=== PATIENT | female | born 1960 | race African-American/Black ===

== ENCOUNTER → 2016-12-06 | Outpatient (CLI) | payer MEDICAID ==
[2016-12-06 09:27] LABS: ABSOLUTE EOSINOPHILS # (AUTO) 0.1 10^3/uL (0.0-0.6); ABSOLUTE LYMPHOCYTES (AUTO) 2.1 10^3/uL (0.5-4.7); ABSOLUTE MONOCYTES (AUTO) 0.6 10^3/uL (0.1-1.4); ABSOLUTE NEUT (AUTO) 4.7 10^3/uL (1.7-8.2); BASOPHILS % (AUTO) 0.6 % (0-2); EOSINOPHILS % (AUTO) 0.7 % (0-6); HEMATOCRIT 36.4 % (36.0-47.0); HEMOGLOBIN 11.6 g/dL (12.0-15.5); HGB HCT DIFFERENCE -1.6; LYMPHOCYTES % (AUTO) 27.8 % (13-45); MEAN CORPUSCULAR HEMOGLOBIN 27.9 pg (27.0-33.4); MEAN CORPUSCULAR VOLUME 87 fl (80-97); MONOCYTES % (AUTO) 8.6 % (3-13); RED BLOOD COUNT 4.17 10^6/uL (3.72-5.28); SEGMENTED NEUTROPHILS % (AUTO) 62.3 % (42-78); WHITE BLOOD COUNT 7.5 10^3/uL (4.0-10.5)
[2016-12-06 09:50] LABS: ALANINE AMINOTRANSFERASE 43 U/L (9-52); ALBUMIN 4.4 g/dL (3.5-5.0); ALKALINE PHOSPHATASE 110 U/L (38-126); ANION GAP 10 (5-19); ASPARTATE AMINO TRANSFERASE 30 U/L (14-36); BILIRUBIN,DIRECT 0.2 mg/dL (0.0-0.4); BILIRUBIN,TOTAL 0.3 mg/dL (0.2-1.3); BLOOD UREA NITROGEN 10 mg/dL (7-20); CALCIUM 9.6 mg/dL (8.4-10.2); CARBON DIOXIDE 26 mmol/L (22-30); CHLORIDE 101 mmol/L (98-107); CREATININE RESULT 0.78 mg/dL (0.52-1.25); Direct HDL 67 mg/dL (>40); GLUCOSE 97 mg/dL (75-110); POTASSIUM 4.4 mmol/L (3.6-5.0); SODIUM 137.3 mmol/L (137-145); TOTAL PROTEIN 7.8 g/dL (6.3-8.2); TRIGLYCERIDES 74 mg/dL (<150)
[2016-12-06 10:05] LABS: DIRECT LDL 115 mg/dL (<100)
== END ==
LOC: OD 08:54
PROVIDERS: ATTEND Physician Assistant
DX: Z51.81 Encounter for therapeutic drug level monitoring (principal); F20.0 Paranoid schizophrenia; Z79.899 Other long term (current) drug therapy
CPT/HCPCS: 36415; 80053; 80061; 80156; 84146; 85025

== ENCOUNTER → 2017-01-03 | Outpatient (CLI) | payer MEDICAID ==
--- NOTE | 2017-01-03 09:11 | WOMENS IMAGING REPORT ---
EXAM DESCRIPTION: BILAT SCREENING MAMMO W/CAD COMPLETED DATE/TIME: 01/03/2017 8:59 am REASON FOR STUDY: ROUTINE SCREENING; Z12.31 Z12.31 ENCNTR SCREEN MAMMOGRAM FOR MALIGNANT NEOPLASM O F BRUNO COMPARISON: 04/21/2015 and 01/17/2014. TECHNIQUE: Standard craniocaudal and mediolateral oblique views of each breast recorded using digita l acquisition. LIMITATIONS: None. FINDINGS: Findings present which are benign by mammographic criteria. No suspicious masses, calcifi cations or architectural distortion. Pertinent benign findings: Stable calcifications. Biopsy changes in the right breast. Read with the assistance of CAD. .[facility] - R2 Cenova Version 1.3 .[facility] - R2 Cenova Version 1.3 .[facility] - R2 Cenova Version 2.4 .[facility] - R2 Cenova Version 2.4 .[facility] - R2 Advertising Agent Version 9.2 Benign mammographic findings may include one or more of the following: Smooth masses, popcorn/rim/co arse calcifications, asymmetries, post-procedure changes, and lesions with long-standing stability. IMPRESSION: BENIGN MAMMOGRAPHIC FINDINGS. BIRADS 2 BREAST DENSITY: b. There are scattered areas of fibroglandular density. BIRAD: 2 BENIGN FINDING(S) RECOMMENDATION: ROUTINE SCREENING COMMENT: The patient has been notified of the results by letter per SA requirements. Additional no tification policies are in place for contacting patient with suspicious or incomplete findings. Quality ID #[id number]: The [employer] recommends an annual screening mammogram for women aged 40 years or over. This facility utilizes a reminder system to ensure that all patients receive reminder letters, and/or direct phone calls for appointments. This includes reminders for routine scr eening mammograms, diagnostic mammograms, or other Breast Imaging Interventions when appropriate. Th is patient will be placed in the appropriate reminder system. The [employer] (ACR) has developed recommendations for screening MRI of the breast s in certain patient populations, to be used in conjunction with mammography. Breast MRI surveillanc e may be appropriate for women with more than 20% lifetime risk of developing breast cancer as deter mined by genetic testing, significant family history of the disease, or history of mantle radiation f or Hodgkins Disease. ACR Practice Guidelines 2008. TECHNICAL DOCUMENTATION: FINDING NUMBER: (1) ASSESSMENT: (1) JOB ID: [id number] [employer]- All Rights Reserved
== END ==
LOC: WI 08:25
PROVIDERS: ATTEND Internal Medicine
DX: Z12.31 Encounter for screening mammogram for malignant neoplasm of breast (principal)
CPT/HCPCS: 77067; G0202

== ENCOUNTER 2018-07-08 14:26 | Emergency (ER) | payer MEDICAID ==
[2018-07-08 14:58] LABS: ABSOLUTE LYMPHOCYTES (AUTO) 1.5 10^3/uL (0.5-4.7); ABSOLUTE MONOCYTES (AUTO) 0.6 10^3/uL (0.1-1.4); ABSOLUTE NEUT (AUTO) 7.6 10^3/uL (1.7-8.2); BASOPHILS % (AUTO) 0.5 % (0-2); EOSINOPHILS % (AUTO) 0.1 % (0-6); HEMOGLOBIN 12.7 g/dL (12.0-15.5); LYMPHOCYTES % (AUTO) 15.7 % (13-45); MEAN CORPUSCULAR HEMOGLOBIN 28.2 pg (27.0-33.4); MEAN CORPUSCULAR HGB CONC 33.3 g/dL (32.0-36.0); MEAN CORPUSCULAR VOLUME 85 fl (80-97); MONOCYTES % (AUTO) 6.4 % (3-13); PLATELET COUNT 190 10^3/uL (150-450); RED BLOOD COUNT 4.49 10^6/uL (3.72-5.28); RED CELL DISTRIBUTION WIDTH 14.2 % (11.5-14.0); SEGMENTED NEUTROPHILS % (AUTO) 77.3 % (42-78); TOTAL CELLS COUNTED % (AUTO) 100 %; WHITE BLOOD COUNT 9.9 10^3/uL (4.0-10.5)
[2018-07-08 15:12] LABS: ALANINE AMINOTRANSFERASE 25 U/L (9-52); ALBUMIN 4.5 g/dL (3.5-5.0); ALKALINE PHOSPHATASE 102 U/L (38-126); ANION GAP 9 (5-19); ASPARTATE AMINO TRANSFERASE 22 U/L (14-36); BILIRUBIN,DIRECT 0.2 mg/dL (0.0-0.4); BILIRUBIN,TOTAL 0.3 mg/dL (0.2-1.3); BLOOD UREA NITROGEN 12 mg/dL (7-20); CALCIUM 9.5 mg/dL (8.4-10.2); CARBON DIOXIDE 26 mmol/L (22-30); CHLORIDE 106 mmol/L (98-107); GLUCOSE 95 mg/dL (75-110); POTASSIUM 3.7 mmol/L (3.6-5.0); SODIUM 141.4 mmol/L (137-145); TOTAL PROTEIN 7.3 g/dL (6.3-8.2)
[2018-07-08 15:13] LABS: ACETAMINOPHEN < 10 ug/mL (10-30); ALCOHOL < 10 mg/dL (NONE DETECTED); SALICYLATE < 1.0 mg/dL (2.0-20.0)
--- NOTE | 2018-07-08 16:38 | PSYCHOLOGICAL NOTE ---
Psych Note - Psych Note Date seen by psych provider: 07/08/18 Time seen by psych provider: 15:00 Psych Note: Reason for Consult: IVC Patient discloses manufacturing business analyst let her on the bus without a take it because the terminal computers were down. She reports next time she will make sure that she buys a take it. She confirms she lives here locally however her "neighbors cleared out without me." She is unable to articulate where she was going or why. When asked if there was any friends or family in the area that she reports "I do not know who could put up with me" and then appears to be going through a possible list of people, where they live, what they do and if they have the time to assist her. Patient has a history of living in assisted living, and take programs in a half-way situations. She is unable to articulate who her current mental health provider is however does state that Dr. Cruz is her doctor. Conversational speech is pressured. Patient does not make eye contact is noted to be rocking and then starts to cover the side of her head with her hand to completely block her face from sight from clinician. Patient is noted to be easily startled by her surroundings. Patient is unable to carry on organized and linear conversation; thought processes are tangential. Patient contacted [facility] to verify diagnosis. Patient has documented diagnosis of schizophrenia going back to 2000. Patient's last outpatient mental health provider was noted to be [facility]. Medication recommendations per [facility]'s contracted psychiatrist Dr. Kameron LANCE are as follows Zyprexa 10 mg IM once Zyprexa 5 mg IM twice daily Cogentin 1 mg daily Thorazine 50 mg IM every 8 hours as needed Schizophrenia per history provided by [facility] Impression\\plan: Patient is recommended to continue under IVC. Currently patient is unable to engage effectively in problem solving or demonstrate insight, judgment and impulse control. Patient does have a mental health history of schizophrenia with a stay at [facility] living. Patient's speech is currently pressured with tangential thought processes. It is unclear if the patient is highly agitated or if she is responding to internal stimuli as she is attempting to cover the side of her face so she cannot see clinician or outside of the room, is rocking back and forth, and is easily startled. Medication recommendations have been provided; patient will be reevaluated. Dr. Rodríguez was consulted and the care management of this patient; attending physicians in agreement with recommendations and disposition.
[2018-07-08] MEDS ORDERED: CHLORPROMAZINE HCL INJ 25 MG/1 ML AMPULE IM PRN (17:16)
[2018-07-08] MEDS: OLANZAPINE INJ/PF 10 MG SDV IM SCH (17:47)
--- NOTE | 2018-07-08 18:58 | ER Document Report ---
ED General - General Chief Complaint: Psych Problem Stated Complaint: PSYCH EVAL Time Seen by Provider: 07/08/18 15:20 Primary Care Provider: DAYO CRAWFORD MD [Primary Care Provider] - Follow up as needed TRAVEL OUTSIDE OF THE [place] IN LAST 30 DAYS: No - HPI Notes: Patient brought in for evaluation of psychiatric complaint. She really cannot offer me any meaningful history. Evidently the patient was found trying to get on a bus without a take it. She became more agitated and combative so was brought here. The patient states she does not want to be here. When I asked her about what sort of help she is received in the past, she mentions multiple day programs. I asked her if there is anyone that can help her as an outpatient. She mentions multiple neighbors but does not have a phone number. According to the police they have tried to find a family member or someone to help with her care for some time. There are some concerns over her welfare and ability to care for self. The patient herself states she is not suicidal nor homicidal. - Related Data Allergies/Adverse Reactions: No Known Allergies Allergy (Unverified 07/17/12 11:39) Past Medical History - General Information source: Patient - Unobtainable due to current mental status patient - Social History Smoking Status: Current Every Day Smoker Family History: Other - Patient unable to offer any meaningful family history Patient has suicidal ideation: No Patient has homicidal ideation: No Renal/ Medical History: Denies: Hx Peritoneal Dialysis Psychiatric Medical History: Reports: Hx Schizophrenia Review of Systems - Review of Systems -: Yes ROS unobtainable due to patient's medical condition - Patient evidently has a history of schizophrenia, unreliable review of syst Physical Exam - Vital signs Vitals: Temp Pulse BP Pulse Ox 97.7 F 83 136/78 H 98 07/08/18 14:55 07/08/18 14:55 07/08/18 14:55 07/08/18 14:55 Interpretation: Normal - Notes Notes: Patient is seen and examined by myself. She is agitated, rocking back and forth. She makes markedly diminished eye contact. Her speech is pressured, she exhibits flight of ideas. Head is normocephalic atraumatic. Pupils equal round reactive to light. Neck is supple without thyromegaly or adenopathy. Heart is regular rate and rhythm, lungs are clear to auscultation bilaterally. Abdomen is soft, nontender, normoactive bowel sounds. Extremities without cyanosis, clubbing, edema. Skin is warm and dry. No focal neurological deficits, no gross facial asymmetry. Patient is intermittently cooperative and slightly agitated. Course - Re-evaluation Re-evalutation: 07/08/18 18:58 Patient presents to the emergency department for evaluation. IVC papers are filled out. The patient remained agitated occasions were ordered as per psychiatric recommendation. Patient will be held in the emergency department pending psychiatric hospitalization. 07/08/18 18:59 Please note that urine is still pending at this time. - Vital Signs Vital signs: Temp Pulse Resp BP Pulse Ox 97.7 F 83 136/78 H 98 07/08/18 14:55 07/08/18 14:55 07/08/18 14:55 07/08/18 14:55 - Laboratory Result Diagrams: 07/08/18 14:45 07/08/18 14:45 Laboratory results interpreted by me: 07/08/18 07/08/18 07/09/18 14:45 14:45 00:20 RDW 14.2 H Urine Ketones TRACE H Salicylates < 1.0 L Acetaminophen < 10 L - EKG Interpretation by Me Additional EKG results interpreted by me: 07/08/18 18:57 EKG reveals bigeminy with a rate of 80 bpm. Normal axis and intervals. No acute ST-T wave changes concerning for ischemia or infarction. Discharge - Discharge Clinical Impression: Psychosis, Schizophrenia Condition: Fair Disposition: PSYCH HOSP/UNIT Referrals: DAYO CRAWFORD MD [Primary Care Provider] - Follow up as needed
--- NOTE | 2018-07-08 20:12 | EKG REPORT ---
SEVERITY:- ABNORMAL ECG - SINUS RHYTHM VENTRICULAR BIGEMINY PROBABLE LEFT ATRIAL ABNORMALITY NONSPECIFIC T ABNORMALITIES, INFERIOR LEADS : Confirmed by: Christie Gomez 08-Jul-2018 20:11:25
[2018-07-09 01:03] LABS: APPEARANCE,URINE SLIGHTLY-CLOUDY; BILIRUBIN,URINE NEGATIVE (NEGATIVE); COLOR,URINE YELLOW; GLUCOSE, URINE NEGATIVE (NEGATIVE); KETONES,URINE TRACE mg/dL (NEGATIVE); LEUKOCYTE ESTERASE,URINE NEGATIVE (NEGATIVE); NITRITE,URINE NEGATIVE (NEGATIVE); PROTEIN,URINE NEGATIVE (NEGATIVE); URINE SPECIFIC GRAVITY 1.015; UROBILINOGEN,URINE NEGATIVE mg/dL (<2.0)
[2018-07-09 01:18] LABS: URINE AMPHETAMINES SCREEN NEGATIVE; URINE BARBITURATES SCREEN NEGATIVE; URINE BENZODIAZEPINES SCREEN NEGATIVE; URINE COCAINE SCREEN NEGATIVE; URINE MARIJUANA (THC) SCREEN NEGATIVE; URINE METHADONE SCREEN NEGATIVE; URINE PHENCYCLIDINE SCREEN NEGATIVE
--- NOTE | 2018-07-09 09:53 | ER Document Report ---
Doctor's Note Notes: 07/09/18 09:51 Patient seen and examined, vital signs reviewed. Patient continues to ramble, and talks in circles, makes poor eye contact, when discussing any issues with the patient. She seems to obsess over things, and repeats herself and counts down and then counts back up. She is been naming several people that may be able to help her, but then states she does not want to bother them. She seems to still be having some issues from a psychiatric standpoint, and I feel that there is likely a component of developmental delay as well, this is discussed with the behavioral health team, which they agree, we will continue to monitor and treat to see if the patient improves from a mental health standpoint, to control her symptoms. Patient continues to be medically clear.
[2018-07-09] MEDS: OLANZAPINE INJ/PF 10 MG SDV IM SCH ×2 (10:51→18:45)
[2018-07-09] MEDS: BENZTROPINE MESYLATE INJ 2 MG/2 ML AMPULE IM SCH (10:51)
--- NOTE | 2018-07-10 10:06 | ER Document Report ---
Doctor's Note Notes: 07/10/18 10:04 Patient seen and evaluated. She is standing at the sink washing half of her hair during my exam. Patient believes we have met before although this is the first time I have evaluated her on this visit. Patient is speaking pressured and seems anxious. She states she does not like hospitals because last time she was here was for a family reason or for mammogram, she was not sure but continue to speak in circles around why she was here last. Patient does state that the medication she was receiving IM last night helped her. She does express a desire to feel better. She is stating that she would prefer to take oral medications now if possible. Patient states that she was hoping to go home tomorrow if possible. She is waiting for psych evaluation still today for disposition planning. She is continuing to be medically cleared and stable.
[2018-07-10] MEDS: OLANZAPINE INJ/PF 10 MG SDV IM SCH (10:56)
[2018-07-10] MEDS: BENZTROPINE MESYLATE INJ 2 MG/2 ML AMPULE IM SCH (10:56)
[2018-07-10 13:39] VITALS: BP 131/71
--- NOTE | 2018-07-10 13:49 | PSYCHOLOGICAL NOTE ---
Psych Note - Psych Note Date seen by psych provider: 07/09/18 Time seen by psych provider: 07:15 Psych Note: Reason for Consult: IVC Check in conducted with patient Patient continues to have a difficult time with linear and organized conversati on. Patient continues with pressured speech and tangential thought processes. Presentation is still very childlike, it is unclear if this is baseline. [facility] reports only mental health diagnosis not a intellectual disability. Patient is observed standing and psychomotor agitation (swinging her legs and rocking). attention and concentration are grossly poor. Patient never makes eye contact but in brief moments lasting 1 -2 seconds. Medication recommendations per [facility]'s contracted psychiatrist Dr. Kameron LANCE are as follows Zyprexa 10 mg IM once Zyprexa 5 mg IM twice daily Cogentin 1 mg daily Thorazine 50 mg IM every 8 hours as needed Schizophrenia per history provided by [facility] Impression\plan: Patient is recommended to continue under IVC. Currently patient is unable to engage effectively in problem solving or demonstrate insight, judgment and impulse control. Patient does have a mental health history of schizophrenia with a stay at [facility] living. Patient's speech is currently pressured with tangential thought processes. Patient continues to hide her face so she cannot see clinician or outside of the room, is rocking back and forth, swinging her legs, and is easily startled. Medication recommendations have been provided; patient will be reevaluated. Dr. Rodríguez was consulted and the care management of this patient; attending physicians in agreement with recommendations and disposition.
--- NOTE | 2018-07-10 13:52 | PSYCHOLOGICAL NOTE ---
Psych Note - Psych Note Date seen by psych provider: 07/10/18 Time seen by psych provider: 09:15 Psych Note: Reason for Consult: IVC Check in conducted with patient Patient is observed caring on a conversation in her room (no one is in the room with her). Patient does shower but continues to have difficulties conducting organized and linear conversations. Patient was accepted to [facility]; transports has been requested. Medication recommendations per [facility]'s contracted psychiatrist Dr. Kameron LANCE are as follows Zyprexa 10 mg IM once Zyprexa 5 mg IM twice daily Cogentin 1 mg daily Thorazine 50 mg IM every 8 hours as needed Schizophrenia per history provided by [facility] Impression\plan: Patient is recommended to continue under IVC. Currently patient is unable to engage effectively in problem solving or demonstrate insight, judgment and impulse control. Patient does have a mental health history of schizophrenia with a stay at [facility]. Patient's speech is currently pressured with tangential thought processes. Patient continues to hide her face so she cannot see clinician or outside of the room, is rocking back and forth, swinging her legs, and is easily startled. Medication recommendations have been provided. Patient was accepted to [facility]; transports has been requested. Dr. Rodríguez was consulted and the care management of this patient; attending physicians in agreement with recommendations and disposition.
== END 2018-07-10 17:20 ==
LOC: ER 14:26
DX: F20.9 Schizophrenia, unspecified (principal); F29 Unspecified psychosis not due to a substance or known physiological condition; R45.1 Restlessness and agitation; F17.200 Nicotine dependence, unspecified, uncomplicated
CPT/HCPCS: 93005; 99285; 96372; 36415; 80307 ×4; 85025; 80053; 81001; 93010; J0515 ×2

== ENCOUNTER 2019-10-21 13:39 | Emergency (ER) | payer MEDICAID, OTHER ==
[2019-10-21 14:26] LABS: ABSOLUTE LYMPHOCYTES (AUTO) 2.2 10^3/uL (0.5-4.7); ABSOLUTE MONOCYTES (AUTO) 0.6 10^3/uL (0.1-1.4); ABSOLUTE NEUT (AUTO) 2.8 10^3/uL (1.7-8.2); BASOPHILS % (AUTO) 0.3 % (0-2); EOSINOPHILS % (AUTO) 0.7 % (0-6); HEMATOCRIT 34.7 % (36.0-47.0); HEMOGLOBIN 11.9 g/dL (12.0-15.5); LYMPHOCYTES % (AUTO) 38.5 % (13-45); MEAN CORPUSCULAR HEMOGLOBIN 29.6 pg (27.0-33.4); MEAN CORPUSCULAR HGB CONC 34.3 g/dL (32.0-36.0); MEAN CORPUSCULAR VOLUME 86 fl (80-97); MONOCYTES % (AUTO) 10.4 % (3-13); PLATELET COUNT 119 10^3/uL (150-450); RED BLOOD COUNT 4.02 10^6/uL (3.72-5.28); RED CELL DISTRIBUTION WIDTH 15.1 % (11.5-14.0); SEGMENTED NEUTROPHILS % (AUTO) 50.1 % (42-78); TOTAL CELLS COUNTED % (AUTO) 100 %; WHITE BLOOD COUNT 5.6 10^3/uL (4.0-10.5)
--- NOTE | 2019-10-21 14:37 | ER Document Report ---
ED General - General Chief Complaint: Psych Problem Stated Complaint: ALTERED MENTAL STATUS Time Seen by Provider: 10/21/19 14:10 Primary Care Provider: DAYO CRAWFORD MD [Primary Care Provider] - Follow up as needed Notes: 59-year-old female who was brought to [facility] by JOAQUIM for abnormal behavior, when seen at [facility] they were concerned because she was not making sense so they have a bed available for her however they sent her to this emergency department for both medical and psychiatric evaluation. Patient currently states that she just wanted help, does not want any more Pap smears, does not want any other examinations. Repeats again that she is sick of having Pap smears. Denies any suicidal or homicidal ideation, denies any physical symptoms. Refuses to answer anymore questions. Refuses to allow physical examination beyond observation. Did allow blood work. States over and over again that she just wants to leave. Cannot tell me why JOAQUIM brought her to [facility] in the first place. Cannot tell me what help she was hoping to get from [facility]. TRAVEL OUTSIDE OF THE [place] IN LAST 30 DAYS: No - Related Data Allergies/Adverse Reactions: No Known Allergies Allergy (Unverified 07/17/12 11:39) Past Medical History - General Information source: Patient - Social History Smoking Status: Current Every Day Smoker Chew tobacco use (# tins/day): No Family History: Other - Patient unable to offer any meaningful family history Patient has homicidal ideation: No Renal/ Medical History: Denies: Hx Peritoneal Dialysis Psychiatric Medical History: Reports: Hx Schizophrenia Review of Systems - Review of Systems -: Yes ROS unobtainable due to patient's medical condition - Patient refuses to answer questions. Physical Exam - Vital signs Vitals: Temp 97.8 F 10/21/19 13:40 - Notes Notes: GENERAL: Alert, pacing, agitated, repeating that she wants to leave. HEAD: Normocephalic, atraumatic EYES: Pupils equal, round and reactive to light, extraocular movements intact. ENT: Oral mucosa moist, tongue midline. NECK: Full range of motion, supple, trachea midline. LUNGS: no respiratory distress. Will not allow me to listen to her lungs HEART: Will not allow me to examine her heart ABDOMEN: nondistended on visual expection, will not allow me to do physical inspection. EXTREMITIES: Moves all 4 extremities spontaneously. No cyanosis. NEUROLOGICAL: Alert, pacing, some flight of ideas but no slurred speech, normal speech, no facial droop. PSYCH: Agitated, repeating herself, rarely answers a question directly, shows some signs of paranoia. Course - Re-evaluation Re-evalutation: 10/21/19 15:26 [facility] requested COVID swab if she is discharged back to them. Currently patient is not allowing me to listen to her heart or lungs. Suspect patient will not allow us to do a COVID swab at this time. I have no suspicion for symptomatic coronavirus at this time as she has no cough, no fevers and no shortness of breath. 10/21/19 16:50 CBC shows mild anemia hemoglobin 11.9, platelets low 119 otherwise unremarkable, CMP unremarkable, salicylate, acetaminophen and alcohol all undetectable. Carla heredia is medically cleared, but she is in need of acute psychiatric stabilization as she appears to be having an acute exacerbation of her paranoid schizophrenia. Patient is placed on involuntary commitment paperwork. 10/21/19 20:24 [facility] re[facility]. - Vital Signs Vital signs: Temp Pulse Resp BP Pulse Ox 97.8 F 10/21/19 13:40 - Laboratory Result Diagrams: 10/21/19 13:50 10/21/19 13:50 Laboratory results interpreted by me: 10/21/19 10/21/19 10/21/19 13:50 13:50 19:25 Hgb 11.9 L Hct 34.7 L RDW 15.1 H Plt Count 119 L Urine Ketones TRACE H Urine Urobilinogen 4.0 H Ur Leukocyte Esterase TRACE H Salicylates < 1.0 L Acetaminophen < 10 L Discharge - Discharge Clinical Impression: Paranoid schizophrenia Condition: Good Disposition: PSYCH HOSP/UNIT Referrals: DAYO CRAWFORD MD [Primary Care Provider] - Follow up as needed
[2019-10-21 14:43] LABS: ALBUMIN 4.3 g/dL (3.5-5.0); ALKALINE PHOSPHATASE 81 U/L (38-126); ANION GAP 9 (5-19); ASPARTATE AMINO TRANSFERASE 22 U/L (14-36); BILIRUBIN,TOTAL 0.3 mg/dL (0.2-1.3); BLOOD UREA NITROGEN 10 mg/dL (7-20); CALCIUM 9.4 mg/dL (8.4-10.2); CARBON DIOXIDE 24 mmol/L (22-30); CHLORIDE 107 mmol/L (98-107); GLUCOSE 109 mg/dL (75-110); POTASSIUM 4.2 mmol/L (3.6-5.0); TOTAL PROTEIN 7.7 g/dL (6.3-8.2)
[2019-10-21 14:46] LABS: ACETAMINOPHEN < 10 ug/mL (10-30); ALCOHOL < 10 mg/dL (NONE DETECTED); SALICYLATE < 1.0 mg/dL (2.0-20.0)
[2019-10-21] MEDS ORDERED: NICOTINE 14 MG/24 HR PATCH.TD24 TD ONE (19:25)
[2019-10-21 19:56] LABS: APPEARANCE,URINE CLEAR; BILIRUBIN,URINE NEGATIVE (NEGATIVE); COLOR,URINE YELLOW; GLUCOSE, URINE NEGATIVE (NEGATIVE); KETONES,URINE TRACE mg/dL (NEGATIVE); LEUKOCYTE ESTERASE,URINE TRACE (NEGATIVE); NITRITE,URINE NEGATIVE (NEGATIVE); PROTEIN,URINE NEGATIVE (NEGATIVE); URINE SPECIFIC GRAVITY 1.019
[2019-10-21] MEDS: CHLORPROMAZINE HCL INJ 25 MG/1 ML AMPULE IM SCH (20:15)
[2019-10-21] MEDS: BENZTROPINE MESYLATE INJ 2 MG/2 ML AMPULE IM SCH (20:15)
[2019-10-21 20:20] LABS: URINE AMPHETAMINES SCREEN NEGATIVE; URINE BARBITURATES SCREEN NEGATIVE; URINE BENZODIAZEPINES SCREEN NEGATIVE; URINE COCAINE SCREEN NEGATIVE; URINE MARIJUANA (THC) SCREEN NEGATIVE; URINE METHADONE SCREEN NEGATIVE; URINE PHENCYCLIDINE SCREEN NEGATIVE
[2019-10-22] MEDS: CHLORPROMAZINE HCL INJ 25 MG/1 ML AMPULE IM SCH ×4 (01:16→14:14)
[2019-10-22] MEDS: BENZTROPINE MESYLATE INJ 2 MG/2 ML AMPULE IM SCH ×2 (09:35→17:43)
--- NOTE | 2019-10-22 10:27 | PSYCHOLOGICAL NOTE ---
Psych Note - Psych Note Date seen by psych provider: 10/21/19 Time seen by psych provider: 16:37 - [id number] Psych Note: Presenting Problem: Patient is a 59 year old female who presented to the [facility] ED this afternoon via [facility] from [place] after they took her to [place] initially but due to recent travel (has packed bags with airline tickets dated 10/20/2019 per attending nurse) so need for medical clearance (COVID screening) and AMS. Observed patient in her room, going back and forth between standing and sitting on bed. She came out into the hallway and said she was going home. It took a couple medical staff to redirect her. She has been refusing medical procedures and per documentation kept saying "I don't want anymore PAP smear testing." Chart review revealed patient has been coming to the [facility] ED since 2010. She was seen by [facility] 07/08/2018 for similar etiology (AMS, guarded, paranoia, psychosis), held for 3 days, Zyprexa utilized without effectiveness and went inpatient to [place]. She has a documented history of Paranoid Schizophrenia per old ED visit that Sharmin Goodrich ([facility] provider) sent her for (likely labs). She has previously lived at the [facility] in [place] per Jun 2018 ED visit. Patient was alert and oriented to self, person and place. She presented guarded as evidenced by not allowing medical procedures. No SI/HI comments or gestures were made. Patient kept saying she didn't want any more PAP smears so seemed to be having some sort of psychosis or referencing a previous time. Thought processes were disorganized. Intellectual abilities are estimated to be average. Insight, judgment and impulse control were poor as evidenced by AMS with history of Paranoid Schizophrenia. Collateral: At 1518 obtained collateral from [facility] regarding history of multiple calls related to AMS, numerous IVCs and hospitalizations. At 1707 spoke to Zully SMALLS from [facility] who noted when she would ask patient questions patient would answer with something they didn't talk about and further noted [facility] told her they reported h er missing a year ago. Diagnosis: AMS Psychosis (Delusions, Paranoia, Guarded) History of Paranoid Schizophrenia and noncompliance Medication recommendations made by the psychiatric medication provider Dr. Kameron LANCE., includes: Add Thorazine 50MG IM every 6 hours scheduled for psychosis Add Cogentin 1MG IM twice a day to curb tremor side effects often associated with antipsychotic medications Impression/Plan: Recommendation for full IVC. Patient wanted to leave, walked out of her ED room into the hallway and had to be redirected back to her room by a coupe medical staff, has guarded and paranoid presentation to the extent she would not allow medical screening and procedures and kept saying she didn't want anymore PAP smears, she has a documented history of Paranoid Schizophrenia with noncompliance and presented AMS. Consulted with Dr. Rodríguez regarding the management and care of patient. ED Physician in agreement with recommendations.
--- NOTE | 2019-10-22 12:25 | ER Document Report ---
Doctor's Note Notes: 10/22/19 12:23 Patient resting comfortably not showing any signs of distress at this moment. Patient is diagnosed with paranoid schizophrenia and has been medically stable and cleared for discharge to a inpatient outpatient facility for mental health. Today patient had an outburst that lasted presents 1hour and then. Prior to receiving a new medication for her behavior outbursts patient spontaneously resolved her her outbursts and quieted down and then went back to sleep. Perhaps her Thorazine dosing every 6 hours and dose does not last 6 hours. Apparently. Hopefully mental health staff will consider additional medications for patient's behavior.
[2019-10-22] MEDS ORDERED: LORAZEPAM 1 MG TABLET PO PRN (13:59)
[2019-10-22] MEDS ORDERED: CHLORPROMAZINE HCL 50 MG TABLET PO SCH (14:00)
[2019-10-22] MEDS: LORAZEPAM INJ 2 MG/1 ML VIAL IM ONE ×2 (14:10→14:13)
--- NOTE | 2019-10-22 17:35 | PSYCHOLOGICAL NOTE ---
Psych Note - Psych Note Date seen by psych provider: 10/22/19 Time seen by psych provider: 13:40 Psych Note: Reason for Consult:AMS Patient is a 59 year old female who presented to the [facility] ED yesterday via [facility] from [facility] after they took her to [facility] initially but due to recent travel (has packed bags with airline tickets dated 10/20/2019 per attending nurse) so need for medical clearance (COVID screening) and AMS. Unfortunately; this patient's psychiatric needs are higher then [facility] can provided (ie stabilization typically takes more then 3-5 days) so multiple referrals were submitted to psychiatric hospitals for possible placement. Check in conducted with patient: Patient continued to demonstrate disorganized thought processes. She is alert but orientated to person only. She is able to disclose she is diagnosed with "d isorganized schizophrenia" and receives SSI. She also appears to be trying to recall additional information but starts to talk about a "Izzy" and "2004" (the rest is confused rambling). Patient states she will take PO medications with a mouth check so she does not get a shot. It is noted the patient forgets she agreed to PO medication but was compliant after attending nurse spoke with her. Impression/Plan: Patient is recommended to continue under IVC. She presents with continue disorganized thought processes. Patient was accepted to [facility] and transportation was requested. Dr. Rodríguez was consulted on the care and management of this patient attending physician is in agreement with recommendations and disposition.
[2019-10-22] MEDS ORDERED: BENZTROPINE MESYLATE 1 MG TABLET PO SCH (18:00)
[2019-10-22 18:24] VITALS: BP 137/80
== END 2019-10-22 18:58 ==
LOC: ER 13:39
DX: F20.0 Paranoid schizophrenia (principal); R41.82 Altered mental status, unspecified; F17.200 Nicotine dependence, unspecified, uncomplicated; Z03.818 Encounter for observation for suspected exposure to other biological agents ruled out
CPT/HCPCS: 99285; 96372; 36415; 80307 ×4; 85025; 87635; 80053; 81001; J3490 ×2; J0515 ×2; J3230 ×2; J2060